=== PATIENT | male | born 1960 | race Caucasian/White ===

== ENCOUNTER → 2023-12-18 | Outpatient (CLI) | payer BC | LOC: MHCPAIN 10:32 | DX: M47.896 Other spondylosis, lumbar region (principal); M48.061 Spinal stenosis, lumbar region without neurogenic claudication; I10 Essential (primary) hypertension; E78.5 Hyperlipidemia, unspecified | CPT/HCPCS: G0463 ==

== ENCOUNTER → 2023-12-18 | Outpatient (CLI) | payer BC | LOC: COL.RAD 12:17 | DX: M54.16 Radiculopathy, lumbar region (principal) ==

== ENCOUNTER → 2024-01-29 | Outpatient (CLI) | payer BC | LOC: MHCPAIN 15:14 | DX: M47.896 Other spondylosis, lumbar region (principal); M54.16 Radiculopathy, lumbar region | CPT/HCPCS: G0463 ==

== ENCOUNTER → 2024-02-13 | Outpatient (CLI) | payer BC ==
[~2024-02-13] MED LIST: Iohexol 300 - 10 ML VIAL ONE; Lidocaine PF 2% (20 MG/ML) 2 ML VIAL ONE
== END ==
LOC: MHCPAIN 02-06 09:42
DX: M54.16 Radiculopathy, lumbar region (principal)
CPT/HCPCS: J1100; Q9967